=== PATIENT | female | born 1960 | race Caucasian/White ===

== ENCOUNTER → 2019-11-26 | Outpatient (CLI) | payer BC | LOC: M.LAB 07:33 | PROVIDERS: ATTEND Podiatrist Foot Surgery | DX: Z11.59 Encounter for screening for other viral diseases (principal) ==

== ENCOUNTER → 2020-02-25 | Outpatient (CLI) | payer BC | LOC: M.LAB 08:10 | PROVIDERS: ATTEND Podiatrist Foot Surgery | DX: Z01.812 Encounter for preprocedural laboratory examination (principal); Z20.828 Contact with and (suspected) exposure to other viral communicable diseases ==